=== PATIENT | male | born 1985 | race Caucasian/White ===

== ENCOUNTER 2017-01-02 17:19 | Emergency (ER) | payer SELFPAY ==
[2017-01-02 17:29] VITALS: BP 145/91
--- NOTE | 2017-01-02 17:31 | ED Physician Documentation ---
PD HPI CHEST PAIN - Stated complaint Stated Complaint: CHEST PX - Chief complaint Chief Complaint: General - History obtained from History obtained from: Patient - History of Present Illness Timing - onset: Today Timing - onset during: Sleep Timing - duration: Hours (12) Timing - details: Abrupt onset (awoke with it, noted when first got up out of bed.) Quality: Aching, Sharp Location: Right chest Radiation: No: Jaw, Neck, Back, Abdominal, Left upper extremity, Right upper extremity, Other Improved by: No: Rest Worsened by: Inspiration, Movement, Palpation Associated symptoms: No: Shortness of air, Nausea, Vomiting, Feeling faint / dizzy, General Weakness, Palpitations, Cough Similar symptoms before: Has not had sx before Recently seen: Not recently seen Review of Systems Constitutional: denies: Fever, Chills Nose: denies: Rhinorrhea / runny nose, Congestion Throat: denies: Sore throat Cardiac: denies: Palpitations, Pedal edema, Calf pain Respiratory: denies: Dyspnea, Cough, Wheezing GI: denies: Abdominal Pain, Nausea, Vomiting, Diarrhea Skin: denies: Rash, Lesions Musculoskeletal: denies: Extremity swelling Neurologic: denies: Generalized weakness, Focal weakness, Numbness, Near syncope , Altered mental status PD PAST MEDICAL HISTORY - Past Medical History Cardiovascular: None Respiratory: None Neuro: None Endocrine/Autoimmune: None GI: None - Present Medications Home Medications: Ambulatory Orders Medication Instructions Recorded Confirmed No Known Home Medications [No 01/02/17 01/02/17 Known Home Medications] - Allergies Allergies/Adverse Reactions: Allergies Allergy/AdvReac Type Severity Reaction Status Date / Time No Known Drug Allergies Allergy Verified 01/02/17 17:29 - Family History Family history: reports: Non contributory. denies: CAD, Aortic dissection PD ED PE NORMAL - Vitals Vital signs reviewed: Yes - General General: Alert and oriented X 3, Well developed/nourished - HEENT HEENT: Moist mucous membranes, Pharynx benign - Neck Neck: Supple, no meningeal sign - Cardiac Cardiac: RRR, No murmur - Respiratory Respiratory: Clear bilaterally, Other (chestwall tenderness right cartilage area. NO rash nor sores. ) - Abdomen Abdomen: Soft, Non tender - Derm Derm: Normal color, Warm and dry, No rash - Extremities Extremities: Normal ROM s pain, No edema, No calf tenderness / cord - Neuro Neuro: Alert and oriented X 3, No motor deficit, Normal speech - Psych Psych: Normal mood. No: Normal affect (somewhat anxious but pleasant) Results - Vitals Vitals: Oxygen O2 Source Room air - EKG (time done) 17:27 Rate: Rate (enter#) (68) Rhythm: NSR [place]: Normal Intervals: Normal [place] Ischemia: Normal ST segments. No: ST elevation c/w ischemia, ST depression - Rads (name of study) chest Radiology: Prelim report reviewed (no acute process) PD MEDICAL DECISION MAKING - ED course Complexity details: considered differential, d/w patient Departure - Departure Disposition: Home, Self Care Clinical Impression: Costochondral chest pain Condition: Stable Record reviewed to determine appropriate education?: Yes Instructions: ED Chest Pain Costochondritis Follow-Up: Sander Emery MD [Primary Care Provider] - Comments: This seems like some irritation/inflammation of the cartilage of the chest/ xyphoid area. I would suggest some Ibuprofen 400-600 mg three times daily for 4- 5 days, adding Tylenol every 6 hours if needed for pain. Your EKG and chest xray look okay and your exam suggests that it is the cartilage/xyphoid area of the sternum (breastbone) is what is hurting. This is typically an inflammation. Can be from injury, irritation such as cough, or tension in the chest muscles such as anxiety. This typically will improve with some anti-inflammatories and time. Recheck if not improved over the next 3-5 days, sooner if other symptoms develop. Discharge Date/Time: 01/02/17 18:53
--- NOTE | 2017-01-02 18:57 | XRAY Preliminary Report ---
Exam: XR Chest 2 View PA/LAT IMPRESSION: Normal 2-view chest radiography. [facility] SITE ID: [id number]
--- NOTE | 2017-01-02 19:00 | XRAY Report ---
EXAM: CHEST RADIOGRAPHY EXAM DATE: 01/02/2017 06:27 PM. CLINICAL HISTORY: Sternal area pain today. COMPARISON: None. TECHNIQUE: 2 views. FINDINGS: Lungs/Pleura: No focal opacities evident. No pleural effusion. No pneumothorax. Normal volumes. Mediastinum: Heart and mediastinal contours are unremarkable. Other: None. IMPRESSION: Normal 2-view chest radiography. [facility] Referring Provider Line: [phone] SITE ID: [id number]
== END 2017-01-02 18:53 | disposition home or self-care (01) ==
LOC: ED 17:19
DX: M94.0 Chondrocostal junction syndrome [Tietze] (principal)
CPT/HCPCS: 71020; 93005; 99283; 99284

== ENCOUNTER 2017-01-21 21:59 | Inpatient (IN) | payer MEDICAID ==
[2017-01-21] MEDS ORDERED: SODIUM CHLORIDE 0.9% 1,000 ML IV ONE (23:09)
[2017-01-21 23:25] LABS: BASOPHILS # (AUTO) 0.1 10^3/uL (0.0-0.1); BASOPHILS % (AUTO) 1.2 %; EOSINOPHILS # (AUTO) 0.2 10^3/uL (0.0-0.7); EOSINOPHILS % (AUTO) 2.5 %; HCT - HEMATOCRIT 44.2 % (42.0-52.0); HGB - HEMOGLOBIN 15.7 g/dL (14.0-18.0); LYMPHOCYTES # (AUTO) 2.2 10^3/uL (1.5-3.5); LYMPHOCYTES % (AUTO) 26.1 %; MEAN CORPUSCULAR HEMOGLOBIN 33.3 pg (27.0-31.0); MEAN CORPUSCULAR HGB CONC 35.6 g/dL (32.0-36.0); MEAN CORPUSCULAR VOLUME 93.5 fL (80.0-94.0); MEAN PLATELET VOLUME 7.4 fL (7.4-11.4); MONOCYTES # (AUTO) 0.5 10^3/uL (0.0-1.0); MONOCYTES % (AUTO) 6.3 %; NEUTROPHILS # (AUTO) 5.4 10^3/uL (1.5-6.6); NEUTROPHILS % (AUTO) 63.9 %; RED BLOOD COUNT 4.73 10^6/uL (4.70-6.10); RED CELL DISTRIBUTION WIDTH 12.6 % (12.0-15.0); UNCORRECTED WHITE BLOOD COUNT 8.5 x10^3/uL; WHITE BLOOD COUNT 8.5 x10^3/uL (4.8-10.8)
[2017-01-21 23:46] LABS: BILIRUBIN,URINE NEGATIVE (NEGATIVE)
[2017-01-22 00:04] LABS: UA w/ MICROSCOPIC CHARGE YES; UR CULTURE IF IND NOT INDICATED; WBC,URINE 0-3 /HPF (0-3)
[2017-01-22] MEDS ORDERED: SODIUM CHLORIDE 0.9% 1,000 ML IV ONE ×4 (00:16→22:33)
[2017-01-22 00:28] LABS: CALCIUM 9.6 mg/dL (8.5-10.3); CREATININE 1.2 mg/dL (0.6-1.2); POTASSIUM 3.8 mmol/L (3.5-5.0)
--- NOTE | 2017-01-22 00:50 | ED Physician Documentation ---
History of Present Illness - Stated complaint Stated Complaint: SORENESS IN ARMS - Chief complaint Chief Complaint: Ext Problem - History obtained from History obtained from: Patient - Additonal information Additional information: The patient is an otherwise healthy 31-year-old male who presents with soreness of his muscles and dark-colored urine. He has been working out aggressively in the gym for the past 3 days. His muscles became increasingly sore this morning , to the extent that he was not able to straighten his arms due to pain in his biceps. Today he noticed brown tinged urine. He denies fever, nausea or vomiting, or dysuria. He denies history of similar symptoms in the past. Review of Systems Constitutional: reports: Myalgias. denies: Fever Nose: denies: Congestion Throat: denies: Sore throat Cardiac: denies: Chest pain / pressure Respiratory: denies: Dyspnea, Cough GI: denies: Abdominal Pain, Nausea, Vomiting : reports: Other (Brown colored urine.). denies: Dysuria Skin: denies: Rash Musculoskeletal: reports: Extremity pain (Soreness of all extremities.) Neurologic: denies: Focal weakness, Numbness, Headache PD PAST MEDICAL HISTORY - Past Medical History Past Medical History: No Cardiovascular: None Respiratory: None Neuro: None Endocrine/Autoimmune: None GI: None - Past Surgical History Past Surgical History: No - Present Medications Home Medications: Ambulatory Orders Medication Instructions Recorded Confirmed No Known Home Medications [No 01/02/17 01/21/17 Known Home Medications] - Allergies Allergies/Adverse Reactions: Allergies Allergy/AdvReac Type Severity Reaction Status Date / Time No Known Drug Allergies Allergy Verified 01/02/17 17:29 - Social History Does the pt smoke?: Yes Smoking Status: Current every day smoker Does the pt drink ETOH?: Yes Does the pt have substance abuse?: No - Immunizations Immunizations are current?: Yes - POLST Patient has POLST: No PD ED PE NORMAL - Vitals Vital signs reviewed: Yes (Initially hypertensive.) - General General: Alert and oriented X 3, Well developed/nourished - HEENT HEENT: Atraumatic, Pharynx benign - Neck Neck: Supple, no meningeal sign, No adenopathy, No JVD - Cardiac Cardiac: RRR, No murmur - Respiratory Respiratory: No respiratory distress, Clear bilaterally - Abdomen Abdomen: Soft, Non tender, Other (Scaphoid abdomen.) - Back Back: No CVA TTP, No spinal TTP - Derm Derm: No rash - Extremities Extremities: No edema, Other (Tenderness to palpation of large muscle groups, such as biceps, triceps, and quadriceps.) - Neuro Neuro: Alert and oriented X 3, No motor deficit, No sensory deficit Results - Vitals Vitals: Vital Signs - 24 hr 01/21/17 22:14 Temperature 36.9 C Heart Rate 78 Respiratory 18 Rate Blood Pressure 148/93 H O2 Saturation 99 Oxygen O2 Source Room air - Labs Labs: Laboratory Tests 01/21/17 01/21/17 01/21/17 23:19 23:19 23:22 WBC 8.5 RBC 4.73 Hgb 15.7 Hct 44.2 MCV 93.5 MCH 33.3 H MCHC 35.6 RDW 12.6 Plt Count 246 MPV 7.4 Neut # 5.4 Lymph # 2.2 [place] # 0.5 Eos # 0.2 Baso # 0.1 Absolute Nucleated RBC 0.00 Nucleated RBCs 0.0 Sodium 138 Potassium 3.8 Chloride 102 Carbon Dioxide 28 Anion Gap 8.0 BUN 20 Creatinine 1.2 Estimated GFR (MDRD) 72 L Glucose 90 Calcium 9.6 Total Creatine Kinase 53167 H* Urine Color YELLOW Urine Clarity CLEAR Urine pH 6.0 Ur Specific [place] <=1.005 Urine Protein TRACE Urine Glucose (UA) NEGATIVE Urine Ketones NEGATIVE Urine Occult Blood LARGE H Urine Nitrite NEGATIVE Urine Bilirubin NEGATIVE Urine Urobilinogen 0.2 (NORMAL) Ur Leukocyte Esterase NEGATIVE Urine RBC 6-10 H Urine WBC 0-3 Ur Squamous Epith Cells NONE SEEN Urine Bacteria None Seen Ur Microscopic Review INDICATED Urine Culture Comments NOT INDICATED PD MEDICAL DECISION MAKING - ED course Complexity details: reviewed results, re-evaluated patient, considered differential, d/w patient, d/w family, d/w data virtualization consultant ED course: The patient's presentation is most consistent with rhabdomyolysis, with a creatinine kinase of 47,720. His BUN and creatinine are within the normal range at 20 and 1.2. There is trace protein in his urine. Treatment in the emergency department included administration of normal saline, 2 L IV. I discussed his condition with the hospitalist, who will admit him for further evaluation and treatment. Departure - Departure Disposition: [facility] DC/Xfer Clinical Impression: Rhabdomyolysis Qualifiers: Rhabdomyolysis type: traumatic Encounter type: initial encounter Qualified Code (s): T79.6XXA - Traumatic ischemia of muscle, initial encounter Condition: Stable
[2017-01-22] MEDS ORDERED: HYDROmorphone 1 MG/ML SYRINGE IVP PRN (01:23)
[2017-01-22] MEDS ORDERED: ACETAMINOPHEN 325 MG TABLET PO PRN (01:23)
[2017-01-22] MEDS ORDERED: PROCHLORPERAZINE 10 MG/2 ML VIAL IVP PRN (01:23)
[2017-01-22] MEDS ORDERED: SODIUM CHLORIDE FLUSH 0.9% 10 ML SYRINGE IVP PRN (01:23)
[2017-01-22] MEDS ORDERED: HYDROcod/ACETAM 5/325 MG TABLET PO PRN (01:23)
[2017-01-22] MEDS ORDERED: NICOTINE 14 MG PATCH TOP STA (01:39)
[2017-01-22] MEDS: SODIUM CHLORIDE 0.9% 6,000 ML IV SCH ×3 (01:53→22:33)
[2017-01-22] MEDS: SODIUM CHLORIDE FLUSH 0.9% 10 ML SYRINGE IVP SCH ×3 (01:54→22:34)
[2017-01-22] MEDS ORDERED: SODIUM CHLORIDE 0.9% 1,000 ML IV SCH (02:00)
--- NOTE | 2017-01-22 02:16 | HISTORY & PHYSICAL EXAMINATION ---
DATE OF ADMISSION: 01/22/2017 HISTORY OF PRESENT ILLNESS: This is a 31-year-old white male with a negative past medical history who takes no medications. The patient presented to the emergency room with muscle aches, especially of both arms and inability to straighten them since he was excessively working out with weights over the past 3 days. The patient states that he noted dark urine and because of this combination of symptoms, came to the emergency room. He was found to have a CPK of greater than 47,000 and is admitted for rhabdomyolysis. REVIEW OF SYSTEMS: As above. He states that he has not worked out in a long time and then resumed his heavy workout schedule 3 days ago with weights daily for the past 3 days and did not work up to this level. He denies fever or chills. The only other significant review of systems is that he has tattoos and he recently got a tattoo over the left shoulder area and has tenderness in that portion of his skin also. MEDICATIONS AT HOME None. ALLERGIES: NONE. SOCIAL HISTORY: He smokes 1/2 to 1 pack per of cigarettes a day. He has social alcohol intake. FAMILY HISTORY: Noncontributory. PHYSICAL EXAMINATION: GENERAL: Reveals a white male with extensive tattoos and he also has body piercings of the lips and nose. HEENT: Unremarkable except for the above. He has moist mucosa. NECK: Shows no JVD, no thyromegaly. No carotid bruits. No lymphadenopathy. CHEST: Clear. HEART: Sounds are normal. No audible murmurs. ABDOMEN: Soft with positive bowel sounds. EXTREMITIES: No clubbing, cyanosis, or edema. He has marked tenderness to light palpation of his thighs, calves, and upper arms. The right arm cannot be extended completely and is in a bent position of approximately 90 degrees. LABORATORY DATA: Sodium 138, potassium 3.8, BUN 20, creatinine 1.2. Total CPK 47 ,720. Calcium is normal at 9.6. White blood count 8.5, hemoglobin 15.7, platelet count normal, differential normal. Urinalysis showed a pH of 6, specific gravity of less than 1.05. Occult blood was large, but RBCs were 6-10 only. No imaging data was ordered. No EKG was ordered. No INR was ordered. IMPRESSION: Rhabdomyolysis with severe elevation of total CPK, on the basis of muscle overuse from weight lifting and working out. Muscle tenderness consistent with the above. Dark urine with positive occult blood in a large portion but only a few RBCs, these are all consistent with findings of rhabdomyolysis. PLAN: IV hydration at a rapid rate. He already received 2 liters of fluids in the ER over approximately 2-1/2 hours. Normal saline will be continued at 300 mL an hour for 6 liters or more, til CPK normalizes, to prevent renal failure. Follow his potassium, BUN, and creatinine, total CPK and urinalysis. Light activity is advised. No Lovenox will be given for DVT prophylaxis because of his young age and also concern for bleeding if he should get compartment syndrome from muscle swelling. JOB #: [id number] EXT JOB #:[id number] ALPHONSO
[2017-01-22 07:56] LABS: BUN - BLOOD UREA NITROGEN 12 mg/dL (6-20); CALCIUM 8.7 mg/dL (8.5-10.3); CARBON DIOXIDE - CO2 25 mmol/L (21-32); CHLORIDE 111 mmol/L (101-111); CREATININE 0.8 mg/dL (0.6-1.2); GFR - MDRD 114 (>89); GLUCOSE 88 mg/dL (70-100); POTASSIUM 3.8 mmol/L (3.5-5.0); SODIUM 141 mmol/L (135-145)
[2017-01-22] MEDS: POLYETHYLENE GLYCOL 3350 17 GM PACKET PO SCH (08:32)
[2017-01-22] MEDS: FAMOTIDINE 20 MG TABLET PO SCH (08:32)
[2017-01-22] MEDS: SODIUM CHLORIDE 0.9% 1,000 ML IV SCH ×4 (08:43→18:39)
--- NOTE | 2017-01-22 16:36 | PROVIDER PROGRESS NOTE ---
Assessment/Plan - Problem List (1) Rhabdomyolysis Qualifiers: Rhabdomyolysis type: traumatic Encounter type: initial encounter Qualified Code(s): T79.6XXA - Traumatic ischemia of muscle, initial encounter Assessment/Plan: Suspect this is secondary to over exercising [place] [address] Urine color improving Pt will remain on IV fluids Check labs in AM Anticipate home in 2-3 days - Current Meds Current Meds: Current Medications Generic Name Dose Route Start Last Admin Trade Name Freq PRN Reason Stop Dose Admin Famotidine 20 mg 01/22/17 09:00 01/22/17 08:32 Pepcid PO 20 mg DAILY JOE Administration Sodium Chloride 1,000 mls @ 300 mls/hr 01/22/17 08:00 01/22/17 14:41 Normal Saline 0.9% IV 01/22/17 21:19 300 mls/hr .Q3H20M JOE Administration Polyethylene Glycol 17 gm 01/22/17 09:00 01/22/17 08:32 Miralax PO Not Given DAILY JOE Sodium Chloride 10 ml 01/22/17 06:00 01/22/17 11:41 Normal Saline Flush 0.9% IVP Not Given Q8HR JOE - Lab Result Fish Bone Diagrams: 01/21/17 23:19 01/22/17 07:08 - Additional Planning Condition/Complexity: Improved My Orders: My Active Orders 01/22/17 Lunch Regular Diet [DIET] Plan Discussed with:: Patient Time Spent: 15-30 minutes Subjective - Subjective Patient Reports: Feeling Better (Less muscle aches. continues to have muscle pain and weakness.) Nursing Reports: No Complaints Objective Vital Signs: Vital Signs - 24 hr 01/22/17 01/22/17 01/22/17 01:35 01:54 07:16 Temperature 37.3 C 36.7 C Heart Rate 67 Heart Rate [ 70 72 Brachial] Respiratory 16 16 18 Rate Blood Pressure 153/93 H Blood Pressure 144/78 H 149/84 H [Right Brachial artery] O2 Saturation 97 100 98 01/22/17 01/22/17 12:05 15:39 Temperature 36.6 C Heart Rate Heart Rate [ 63 68 Brachial] Respiratory 18 16 Rate Blood Pressure Blood Pressure 137/64 H 141/73 H [Right Brachial artery] O2 Saturation 98 99 Oxygen O2 Source Room air I&O (Last 24 Hrs): Intake and Output Totals x24h 01/20/17 01/21/17 01/22/17 23:59 23:59 23:59 Intake Total 5069 Output Total 4475 Balance 594 General: Alert, Oriented x3 HEENT: PERRLA, EOMI Neck: No JVD Lymphatic: no adenopathy Neuro: Alert, CN 2-12 Grossly Intact Cardiovascular: Regular rate Respiratory: No respiratory distress Abdomen: Normal bowel sounds Extremities: No clubbing, No edema - Results Results: Laboratory Results WBC 8.5 x10^3/uL (4.8-10.8) 01/21/17 23:19 RBC 4.73 10^6/uL (4.70-6.10) 01/21/17 23:19 Hgb 15.7 g/dL (14.0-18.0) 01/21/17 23:19 Hct 44.2 % (42.0-52.0) 01/21/17 23:19 MCV 93.5 fL (80.0-94.0) 01/21/17 23:19 MCH 33.3 pg (27.0-31.0) H 01/21/17 23:19 MCHC 35.6 g/dL (32.0-36.0) 01/21/17 23:19 RDW 12.6 % (12.0-15.0) 01/21/17 23:19 Plt Count 246 10^3/uL (130-450) 01/21/17 23:19 MPV 7.4 fL (7.4-11.4) 01/21/17 23:19 Neut # 5.4 10^3/uL (1.5-6.6) 01/21/17 23:19 Lymph # 2.2 10^3/uL (1.5-3.5) 01/21/17 23:19 [place] # 0.5 10^3/uL (0.0-1.0) 01/21/17 23:19 Eos # 0.2 10^3/uL (0.0-0.7) 01/21/17 23:19 Baso # 0.1 10^3/uL (0.0-0.1) 01/21/17 23:19 Absolute Nucleated RBC 0.00 x10^3/uL 01/21/17 23:19 Nucleated RBCs 0.0 /100WBC 01/21/17 23:19 Sodium 141 mmol/L (135-145) 01/22/17 07:08 Potassium 3.8 mmol/L (3.5-5.0) 01/22/17 07:08 Chloride 111 mmol/L (101-111) 01/22/17 07:08 Carbon Dioxide 25 mmol/L (21-32) 01/22/17 07:08 Anion Gap 5.0 (6-13) L 01/22/17 07:08 BUN 12 mg/dL (6-20) 01/22/17 07:08 Creatinine 0.8 mg/dL (0.6-1.2) 01/22/17 07:08 Estimated GFR (MDRD) 114 (>89) 01/22/17 07:08 Glucose 88 mg/dL (70-100) 01/22/17 07:08 Calcium 8.7 mg/dL (8.5-10.3) 01/22/17 07:08 Ionized Calcium NO 01/22/17 07:08 Total Creatine Kinase 45392 IU/L (22-269) H* 01/22/17 07:08 Urine Color YELLOW 01/21/17 23:22 Urine Clarity CLEAR (CLEAR) 01/21/17 23:22 Urine pH 6.0 PH (5.0-7.5) 01/21/17 23:22 Ur Specific [place] <=1.005 (1.002-1.030) 01/21/17 23:22 Urine Protein TRACE mg/dL (NEGATIVE) 01/21/17 23:22 Urine Glucose (UA) NEGATIVE mg/dL (NEGATIVE) 01/21/17 23:22 Urine Ketones NEGATIVE mg/dL (NEGATIVE) 01/21/17 23:22 Urine Occult Blood LARGE (NEGATIVE) H 01/21/17 23:22 Urine Nitrite NEGATIVE (NEGATIVE) 01/21/17 23:22 Urine Bilirubin NEGATIVE (NEGATIVE) 01/21/17 23:22 Urine Urobilinogen 0.2 (NORMAL) E.U./dL (NORMAL) 01/21/17 23:22 Ur Leukocyte Esterase NEGATIVE (NEGATIVE) 01/21/17 23:22 Urine RBC 6-10 /HPF (0-5) H 01/21/17 23:22 Urine WBC 0-3 /HPF (0-3) 01/21/17 23:22 Ur Squamous Epith Cells NONE SEEN (<= Few) 01/21/17 23:22 Urine Bacteria None Seen /HPF (None Seen) 01/21/17 23:22 Ur Microscopic Review INDICATED 01/21/17 23:22 Urine Culture Comments NOT INDICATED 01/21/17 23:22
[2017-01-22] MEDS ORDERED: LORazepam 0.5 MG TABLET PO PRN (21:12)
[2017-01-22] MEDS: NICOTINE 14 MG PATCH TOP SCH (22:34)
[2017-01-23] MEDS: SODIUM CHLORIDE 0.9% 6,000 ML IV SCH ×5 (00:19→13:51)
[2017-01-23] MEDS ORDERED: SODIUM CHLORIDE 0.9% 1,000 ML IV ONE ×5 (00:19→13:51)
[2017-01-23] MEDS: SODIUM CHLORIDE FLUSH 0.9% 10 ML SYRINGE IVP SCH ×2 (05:02→13:52)
[2017-01-23 07:06] LABS: ALBUMIN/GLOBULIN RATIO 1.5 (1.0-2.2); BILIRUBIN,TOTAL 0.7 mg/dL (0.2-1.0); CALCIUM 9.2 mg/dL (8.5-10.3); CREATININE 0.7 mg/dL (0.6-1.2); MAGNESIUM 1.9 mg/dL (1.7-2.8); TOTAL PROTEIN 6.6 g/dL (6.7-8.2)
[2017-01-23] MEDS: NICOTINE 14 MG PATCH TOP SCH (07:58)
--- NOTE | 2017-01-23 08:35 | PROVIDER PROGRESS NOTE ---
Assessment/Plan - Problem List (1) Rhabdomyolysis Qualifiers: Rhabdomyolysis type: traumatic Encounter type: initial encounter Qualified Code(s): T79.6XXA - Traumatic ischemia of muscle, initial encounter Assessment/Plan: PT is feeling better today 01/23/2017. Improved ROM noted. He is getting mild cramping. Awaiting CK results for today. Electrolytes remain within normal range. Plan Continue Hydration with IV fluids Follow labs Ice or heat as needed Encouraged stretching and ROM activities. Anticipate he will discharge in the next 48 hours - Current Meds Current Meds: Current Medications Generic Name Dose Route Start Last Admin Trade Name Freq PRN Reason Stop Dose Admin Famotidine 20 mg 01/22/17 09:00 01/22/17 08:32 Pepcid PO 20 mg DAILY JOE Administration Sodium Chloride 6,000 mls @ 300 mls/hr 01/22/17 23:00 01/23/17 07:37 Normal Saline 0.9% IV 300 mls/hr .Q20H JOE Administration Nicotine 1 patch 01/22/17 22:00 01/23/17 07:58 Nicoderm TOP 1 patch DAILY JOE Administration Polyethylene Glycol 17 gm 01/22/17 09:00 01/22/17 08:32 Miralax PO Not Given DAILY JOE Sodium Chloride 10 ml 01/22/17 06:00 01/23/17 05:02 Normal Saline Flush 0.9% IVP Not Given Q8HR JOE - Lab Result Fish Bone Diagrams: 01/21/17 23:19 01/23/17 05:30 - Additional Planning Condition/Complexity: Improved My Orders: My Active Orders 01/22/17 Lunch Regular Diet [DIET] 01/24/17 05:00 CK- CREATINE KINASE [CHEM] Timed CMP [COMPREHENSIVE METABOLIC PANEL] [CHEM] DAILYLAB MAGNESIUM [CHEM] DAILYLAB 01/24/17 09:00 CK- CREATINE KINASE [CHEM] Timed 01/25/17 05:00 CMP [COMPREHENSIVE METABOLIC PANEL] [CHEM] DAILYLAB MAGNESIUM [CHEM] DAILYLAB Plan Discussed with:: Patient Time Spent: 15-30 minutes Subjective - Subjective Patient Reports: Feeling Better (Over all he feels better today. His muscles ache less. He reports sandy mild cramps in arms and legs especially with stretching.) Nursing Reports: No Complaints Objective Vital Signs: Vital Signs - 24 hr 01/22/17 01/22/1717 12:05 15:39 20:53 Temperature 36.6 C 37.5 C Heart Rate [ 63 68 58 L Brachial] Respiratory 18 16 18 Rate Blood Pressure 137/64 H 141/73 H 138/79 H [Right Brachial artery] O2 Saturation 98 99 99 01/22/17 01/23/17 01/23/17 23:48 06:18 08:28 Temperature 36.8 C 36.6 C 36.7 C Heart Rate [ 66 53 L 68 Brachial] Respiratory 16 16 16 Rate Blood Pressure 146/88 H 133/75 H 129/65 [Right Brachial artery] O2 Saturation 99 98 98 Oxygen O2 Source Room air I&O (Last 24 Hrs): Intake and Output Totals x24h 01/21/17 01/22/17 01/23/17 23:59 23:59 23:59 Intake Total 8343 2486 Output Total 5155 2150 Balance 3188 336 General: Alert, Oriented x3 HEENT: PERRLA, EOMI Neck: No JVD Neuro: Alert, CN 2-12 Grossly Intact Cardiovascular: Regular rate, No murmurs Respiratory: Chest non-tender, No respiratory distress, Breath sounds nml Abdomen: Soft Extremities: No edema Skin: No rashes, No significant lesion - Results Results: Laboratory Results WBC 8.5 x10^3/uL (4.8-10.8) 01/21/17 23:19 RBC 4.73 10^6/uL (4.70-6.10) 01/21/17 23:19 Hgb 15.7 g/dL (14.0-18.0) 01/21/17 23:19 Hct 44.2 % (42.0-52.0) 01/21/17 23:19 MCV 93.5 fL (80.0-94.0) 01/21/17 23:19 MCH 33.3 pg (27.0-31.0) H 01/21/17 23:19 MCHC 35.6 g/dL (32.0-36.0) 01/21/17 23:19 RDW 12.6 % (12.0-15.0) 01/21/17 23:19 Plt Count 246 10^3/uL (130-450) 01/21/17 23:19 MPV 7.4 fL (7.4-11.4) 01/21/17 23:19 Neut # 5.4 10^3/uL (1.5-6.6) 01/21/17 23:19 Lymph # 2.2 10^3/uL (1.5-3.5) 01/21/17 23:19 [place] # 0.5 10^3/uL (0.0-1.0) 01/21/17 23:19 Eos # 0.2 10^3/uL (0.0-0.7) 01/21/17 23:19 Baso # 0.1 10^3/uL (0.0-0.1) 01/21/17 23:19 Absolute Nucleated RBC 0.00 x10^3/uL 01/21/17 23:19 Nucleated RBCs 0.0 /100WBC 01/21/17 23:19 Sodium 140 mmol/L (135-145) 01/23/17 05:30 Potassium 4.0 mmol/L (3.5-5.0) 01/23/17 05:30 Chloride 108 mmol/L (101-111) 01/23/17 05:30 Carbon Dioxide 26 mmol/L (21-32) 01/23/17 05:30 Anion Gap 6.0 (6-13) 01/23/17 05:30 BUN 8 mg/dL (6-20) 01/23/17 05:30 Creatinine 0.7 mg/dL (0.6-1.2) 01/23/17 05:30 Estimated GFR (MDRD) 133 (>89) 01/23/17 05:30 Glucose 87 mg/dL (70-100) 01/23/17 05:30 Calcium 9.2 mg/dL (8.5-10.3) 01/23/17 05:30 Ionized Calcium NO 01/22/17 07:08 Magnesium 1.9 mg/dL (1.7-2.8) 01/23/17 05:30 Total Bilirubin 0.7 mg/dL (0.2-1.0) 01/23/17 05:30 AST 610 IU/L (10-42) H 01/23/17 05:30 ALT 195 IU/L (10-60) H 01/23/17 05:30 Alkaline Phosphatase 35 IU/L (42-121) L 01/23/17 05:30 Total Creatine Kinase 17047 IU/L (22-269) H* 01/22/17 07:08 Total Protein 6.6 g/dL (6.7-8.2) L 01/23/17 05:30 Albumin 4.0 g/dL (3.2-5.5) 01/23/17 05:30 Globulin 2.6 g/dL (2.1-4.2) 01/23/17 05:30 Albumin/Globulin Ratio 1.5 (1.0-2.2) 01/23/17 05:30 Urine Color YELLOW 01/21/17 23:22 Urine Clarity CLEAR (CLEAR) 01/21/17 23:22 Urine pH 6.0 PH (5.0-7.5) 01/21/17 23:22 Ur Specific [place] <=1.005 (1.002-1.030) 01/21/17 23:22 Urine Protein TRACE mg/dL (NEGATIVE) 01/21/17 23:22 Urine Glucose (UA) NEGATIVE mg/dL (NEGATIVE) 01/21/17 23:22 Urine Ketones NEGATIVE mg/dL (NEGATIVE) 01/21/17 23:22 Urine Occult Blood LARGE (NEGATIVE) H 01/21/17 23:22 Urine Nitrite NEGATIVE (NEGATIVE) 01/21/17 23:22 Urine Bilirubin NEGATIVE (NEGATIVE) 01/21/17 23:22 Urine Urobilinogen 0.2 (NORMAL) E.U./dL (NORMAL) 01/21/17 23:22 Ur Leukocyte Esterase NEGATIVE (NEGATIVE) 01/21/17 23:22 Urine RBC 6-10 /HPF (0-5) H 01/21/17 23:22 Urine WBC 0-3 /HPF (0-3) 01/21/17 23:22 Ur Squamous Epith Cells NONE SEEN (<= Few) 01/21/17 23:22 Urine Bacteria None Seen /HPF (None Seen) 01/21/17 23:22 Ur Microscopic Review INDICATED 01/21/17 23:22 Urine Culture Comments NOT INDICATED 01/21/17 23:22
[2017-01-23] MEDS: FAMOTIDINE 20 MG TABLET PO SCH (08:55)
[2017-01-23] MEDS: POLYETHYLENE GLYCOL 3350 17 GM PACKET PO SCH (08:55)
[2017-01-23] MEDS ORDERED: NICOTINE 14 MG PATCH TOP SCH (09:00)
[2017-01-23] MEDS: SODIUM CHLORIDE 0.9% 1,000 ML IV SCH ×2 (17:33→23:55)
[2017-01-24] MEDS: SODIUM CHLORIDE FLUSH 0.9% 10 ML SYRINGE IVP SCH ×4 (00:21→17:40)
[2017-01-24] MEDS: SODIUM CHLORIDE 0.9% 1,000 ML IV SCH ×6 (06:09→22:44)
[2017-01-24 06:17] LABS: ALBUMIN/GLOBULIN RATIO 1.5 (1.0-2.2); BILIRUBIN,TOTAL 0.6 mg/dL (0.2-1.0); CALCIUM 9.2 mg/dL (8.5-10.3); CREATININE 0.8 mg/dL (0.6-1.2); MAGNESIUM 1.9 mg/dL (1.7-2.8); TOTAL PROTEIN 6.7 g/dL (6.7-8.2)
[2017-01-24] MEDS: POLYETHYLENE GLYCOL 3350 17 GM PACKET PO SCH (09:05)
[2017-01-24] MEDS: NICOTINE 14 MG PATCH TOP SCH (09:05)
[2017-01-24] MEDS: FAMOTIDINE 20 MG TABLET PO SCH (09:05)
--- NOTE | 2017-01-24 09:22 | PROVIDER PROGRESS NOTE ---
Assessment/Plan - Problem List (1) Rhabdomyolysis Qualifiers: Rhabdomyolysis type: traumatic Encounter type: initial encounter Qualified Code(s): T79.6XXA - Traumatic ischemia of muscle, initial encounter Assessment/Plan: Ck increased to 34K today. Suspect from increased activity Over all feeling much better. He has less weakness, soreness and better ROM today Plan Continue IV fluids. Will increase back to 300 mL/hour today Recheck labs in AM - Current Meds Current Meds: Current Medications Generic Name Dose Route Start Last Admin Trade Name Freq PRN Reason Stop Dose Admin Famotidine 20 mg 01/22/17 09:00 01/24/17 09:05 Pepcid PO 20 mg DAILY JOE Administration Sodium Chloride 1,000 mls @ 300 mls/hr 01/24/17 07:21 01/24/17 08:54 Normal Saline 0.9% IV 300 mls/hr .Q3H20M JOE Administration Nicotine 1 patch 01/22/17 22:00 01/24/17 09:05 Nicoderm TOP 1 patch DAILY JOE Administration Polyethylene Glycol 17 gm 01/22/17 09:00 01/24/17 09:05 Miralax PO 17 gm DAILY JOE Administration Sodium Chloride 10 ml 01/22/17 06:00 01/24/17 06:09 Normal Saline Flush 0.9% IVP 10 ml Q8HR JOE Administration - Lab Result Fish Bone Diagrams: 01/21/17 23:19 01/24/17 05:24 - EKG Results EKG Interpreted Independently: Yes - Additional Planning Condition/Complexity: Stable My Orders: My Active Orders 01/24/17 07:21 Sodium Chloride 0.9% [Normal Saline 0.9%] 1,000 ml IV 300 mls/hr 01/25/17 05:00 CMP [COMPREHENSIVE METABOLIC PANEL] [CHEM] DAILYLAB MAGNESIUM [CHEM] DAILYLAB Plan Discussed with:: Patient Time Spent: Less than 15 minutes Subjective - Subjective Patient Reports: Feeling Better (Reports better ROM, less pain. No new complaints) Nursing Reports: No Complaints Objective Vital Signs: Vital Signs - 24 hr 01/23/17 01/23/17 01/24/17 11:15 15:31 00:00 Temperature 36.5 C 36.4 C L Heart Rate [ 61 63 Brachial] Respiratory 16 16 16 Rate Blood Pressure 141/88 H 150/78 H [Right Brachial artery] O2 Saturation 99 99 01/24/17 07:25 Temperature 36.6 C Heart Rate [ 61 Brachial] Respiratory 14 Rate Blood Pressure 133/71 H [Right Brachial artery] O2 Saturation 98 Oxygen O2 Source Room air I&O (Last 24 Hrs): Intake and Output Totals x24h 01/22/17 01/23/17 01/24/17 23:59 23:59 23:59 Intake Total 8343 3645 2443 Output Total 7920 4181 1300 Balance 3188 2570 1143 General: Alert, Oriented x3, No acute distress HEENT: PERRLA, EOMI Neck: No JVD Neuro: Alert, CN 2-12 Grossly Intact Cardiovascular: Regular rate, No murmurs Respiratory: No respiratory distress, Breath sounds nml Extremities: No edema Skin: No rashes, No significant lesion - Results Results: Laboratory Results WBC 8.5 x10^3/uL (4.8-10.8) 01/21/17 23:19 RBC 4.73 10^6/uL (4.70-6.10) 01/21/17 23:19 Hgb 15.7 g/dL (14.0-18.0) 01/21/17 23:19 Hct 44.2 % (42.0-52.0) 01/21/17 23:19 MCV 93.5 fL (80.0-94.0) 01/21/17 23:19 MCH 33.3 pg (27.0-31.0) H 01/21/17 23:19 MCHC 35.6 g/dL (32.0-36.0) 01/21/17 23:19 RDW 12.6 % (12.0-15.0) 01/21/17 23:19 Plt Count 246 10^3/uL (130-450) 01/21/17 23:19 MPV 7.4 fL (7.4-11.4) 01/21/17 23:19 Neut # 5.4 10^3/uL (1.5-6.6) 01/21/17 23:19 Lymph # 2.2 10^3/uL (1.5-3.5) 01/21/17 23:19 [place] # 0.5 10^3/uL (0.0-1.0) 01/21/17 23:19 Eos # 0.2 10^3/uL (0.0-0.7) 01/21/17 23:19 Baso # 0.1 10^3/uL (0.0-0.1) 01/21/17 23:19 Absolute Nucleated RBC 0.00 x10^3/uL 01/21/17 23:19 Nucleated RBCs 0.0 /100WBC 01/21/17 23:19 Sodium 139 mmol/L (135-145) 01/24/17 05:24 Potassium 4.0 mmol/L (3.5-5.0) 01/24/17 05:24 Chloride 106 mmol/L (101-111) 01/24/17 05:24 Carbon Dioxide 27 mmol/L (21-32) 01/24/17 05:24 Anion Gap 6.0 (6-13) 01/24/17 05:24 BUN 9 mg/dL (6-20) 01/24/17 05:24 Creatinine 0.8 mg/dL (0.6-1.2) 01/24/17 05:24 Estimated GFR (MDRD) 114 (>89) 01/24/17 05:24 Glucose 95 mg/dL (70-100) 01/24/17 05:24 Calcium 9.2 mg/dL (8.5-10.3) 01/24/17 05:24 Ionized Calcium NO 01/22/17 07:08 Magnesium 1.9 mg/dL (1.7-2.8) 01/24/17 05:24 Total Bilirubin 0.6 mg/dL (0.2-1.0) 01/24/17 05:24 AST 807 IU/L (10-42) H 01/24/17 05:24 ALT 268 IU/L (10-60) H 01/24/17 05:24 Alkaline Phosphatase 33 IU/L (42-121) L 01/24/17 05:24 Total Creatine Kinase 07325 IU/L (22-269) H* 01/24/17 05:24 Total Protein 6.7 g/dL (6.7-8.2) 01/24/17 05:24 Albumin 4.0 g/dL (3.2-5.5) 01/24/17 05:24 Globulin 2.7 g/dL (2.1-4.2) 01/24/17 05:24 Albumin/Globulin Ratio 1.5 (1.0-2.2) 01/24/17 05:24 Urine Color YELLOW 01/21/17 23:22 Urine Clarity CLEAR (CLEAR) 01/21/17 23:22 Urine pH 6.0 PH (5.0-7.5) 01/21/17 23:22 Ur Specific Longs <=1.005 (1.002-1.030) 01/21/17 23:22 Urine Protein TRACE mg/dL (NEGATIVE) 01/21/17 23:22 Urine Glucose (UA) NEGATIVE mg/dL (NEGATIVE) 01/21/17 23:22 Urine Ketones NEGATIVE mg/dL (NEGATIVE) 01/21/17 23:22 Urine Occult Blood LARGE (NEGATIVE) H 01/21/17 23:22 Urine Nitrite NEGATIVE (NEGATIVE) 01/21/17 23:22 Urine Bilirubin NEGATIVE (NEGATIVE) 01/21/17 23:22 Urine Urobilinogen 0.2 (NORMAL) E.U./dL (NORMAL) 01/21/17 23:22 Ur Leukocyte Esterase NEGATIVE (NEGATIVE) 01/21/17 23:22 Urine RBC 6-10 /HPF (0-5) H 01/21/17 23:22 Urine WBC 0-3 /HPF (0-3) 01/21/17 23:22 Ur Squamous Epith Cells NONE SEEN (<= Few) 01/21/17 23:22 Urine Bacteria None Seen /HPF (None Seen) 01/21/17 23:22 Ur Microscopic Review INDICATED 01/21/17 23:22 Urine Culture Comments NOT INDICATED 01/21/17 23:22
[2017-01-25] MEDS: SODIUM CHLORIDE 0.9% 1,000 ML IV SCH ×8 (00:18→22:21)
[2017-01-25] MEDS: SODIUM CHLORIDE FLUSH 0.9% 10 ML SYRINGE IVP SCH ×3 (05:10→22:21)
[2017-01-25 06:53] LABS: CREATININE 0.7 mg/dL (0.6-1.2); POTASSIUM 4.1 mmol/L (3.5-5.0)
[2017-01-25 06:54] LABS: ALBUMIN/GLOBULIN RATIO 1.4 (1.0-2.2); BILIRUBIN,TOTAL 0.7 mg/dL (0.2-1.0); MAGNESIUM 1.8 mg/dL (1.7-2.8); TOTAL PROTEIN 6.6 g/dL (6.7-8.2)
[2017-01-25] MEDS ORDERED: MAGNESIUM HYDROXIDE 2,400 MG/30 ML UDC PO ONE (08:10)
--- NOTE | 2017-01-25 08:45 | PROVIDER PROGRESS NOTE ---
Assessment/Plan - Problem List (1) Rhabdomyolysis Qualifiers: Rhabdomyolysis type: traumatic Encounter type: initial encounter Qualified Code(s): T79.6XXA - Traumatic ischemia of muscle, initial encounter Assessment/Plan: Ck improved PT feeling much better today but still has weakness. Renal function remains stable LFT improved Plan Continue IV fluids Will watch for trend of CK improving. Anticipate discharge in AM - Current Meds Current Meds: Current Medications Generic Name Dose Route Start Last Admin Trade Name Freq PRN Reason Stop Dose Admin Famotidine 20 mg 01/22/17 09:00 01/24/17 09:05 Pepcid PO 20 mg DAILY JOE Administration Nicotine 1 patch 01/22/17 22:00 01/24/17 09:05 Nicoderm TOP 1 patch DAILY JOE Administration Polyethylene Glycol 17 gm 01/22/17 09:00 01/24/17 09:05 Miralax PO 17 gm DAILY JOE Administration Sodium Chloride 10 ml 01/22/17 01:23 01/24/17 18:21 Normal Saline Flush 0.9% IVP 10 ml PRN PRN Administration NEEDED PER PROVIDER ORDERS Sodium Chloride 10 ml 01/22/17 06:00 01/25/17 05:10 Normal Saline Flush 0.9% IVP Not Given Q8HR JOE - Lab Result Lab results reviewed: Yes Fish Bone Diagrams: 01/21/17 23:19 01/25/17 05:53 - Additional Planning Condition/Complexity: Improved My Orders: My Active Orders 01/25/17 08:39 Sodium Chloride 0.9% [Normal Saline 0.9%] 1,000 ml IV 200 mls/hr 01/25/17 09:00 Docusate Sodium 250Mg Capsule [Colace 250Mg Capsule] 250 - 500 mg PO DAILY Senna [Senokot] 8.6 - 17.2 mg PO DAILY 01/26/17 05:00 CMP [COMPREHENSIVE METABOLIC PANEL] [CHEM] DAILYLAB 01/26/17 09:00 CK- CREATINE KINASE [CHEM] DAILY 01/27/17 05:00 CMP [COMPREHENSIVE METABOLIC PANEL] [CHEM] DAILYLAB 01/27/17 09:00 CK- CREATINE KINASE [CHEM] DAILY 01/28/17 05:00 CMP [COMPREHENSIVE METABOLIC PANEL] [CHEM] DAILYLAB 01/28/17 09:00 CK- CREATINE KINASE [CHEM] DAILY Plan Discussed with:: Patient Time Spent: Less than 15 minutes Subjective - Subjective Patient Reports: Feeling Better (Feeling better. Has less pain in muscles. ROM improving.), Constipation (Only small amount of BM yesterday. Feels bloated ) Nursing Reports: Constipation (Implimented bowel care protocol) Objective Vital Signs: Vital Signs - 24 hr 01/24/17 01/24/17 01/25/17 15:31 18:29 00:06 Temperature 36.9 C 36.7 C Heart Rate [ 70 67 68 Brachial] Respiratory 16 16 Rate Blood Pressure 144/70 H 140/78 H 145/78 H [Right Brachial artery] O2 Saturation 97 97 99 01/25/17 08:27 Temperature 36.5 C Heart Rate [ 54 L Brachial] Respiratory 20 Rate Blood Pressure 130/74 [Right Brachial artery] O2 Saturation 97 Oxygen O2 Source Room air I&O (Last 24 Hrs): Intake and Output Totals x24h 01/23/17 01/24/17 01/25/17 23:59 23:59 23:59 Intake Total 8354 0614 3439 Output Total 0761 6476 2035 Balance 2570 81 -326 General: Alert, Oriented x3 HEENT: PERRLA, EOMI Neck: No JVD Neuro: Alert, CN 2-12 Grossly Intact, Oriented Times 3 Cardiovascular: Regular rate, Normal S1, No murmurs Respiratory: No respiratory distress Extremities: No edema Skin: No significant lesion - Results Results: Laboratory Results WBC 8.5 x10^3/uL (4.8-10.8) 01/21/17 23:19 RBC 4.73 10^6/uL (4.70-6.10) 01/21/17 23:19 Hgb 15.7 g/dL (14.0-18.0) 01/21/17 23:19 Hct 44.2 % (42.0-52.0) 01/21/17 23:19 MCV 93.5 fL (80.0-94.0) 01/21/17 23:19 MCH 33.3 pg (27.0-31.0) H 01/21/17 23:19 MCHC 35.6 g/dL (32.0-36.0) 01/21/17 23:19 RDW 12.6 % (12.0-15.0) 01/21/17 23:19 Plt Count 246 10^3/uL (130-450) 01/21/17 23:19 MPV 7.4 fL (7.4-11.4) 01/21/17 23:19 Neut # 5.4 10^3/uL (1.5-6.6) 01/21/17 23:19 Lymph # 2.2 10^3/uL (1.5-3.5) 01/21/17 23:19 [place] # 0.5 10^3/uL (0.0-1.0) 01/21/17 23:19 Eos # 0.2 10^3/uL (0.0-0.7) 01/21/17 23:19 Baso # 0.1 10^3/uL (0.0-0.1) 01/21/17 23:19 Absolute Nucleated RBC 0.00 x10^3/uL 01/21/17 23:19 Nucleated RBCs 0.0 /100WBC 01/21/17 23:19 Sodium 139 mmol/L (135-145) 01/25/17 05:53 Potassium 4.1 mmol/L (3.5-5.0) 01/25/17 05:53 Chloride 107 mmol/L (101-111) 01/25/17 05:53 Carbon Dioxide 26 mmol/L (21-32) 01/25/17 05:53 Anion Gap 6.0 (6-13) 01/25/17 05:53 BUN 8 mg/dL (6-20) 01/25/17 05:53 Creatinine 0.7 mg/dL (0.6-1.2) 01/25/17 05:53 Estimated GFR (MDRD) 133 (>89) 01/25/17 05:53 Glucose 89 mg/dL (70-100) 01/25/17 05:53 Calcium 9.0 mg/dL (8.5-10.3) 01/25/17 05:53 Ionized Calcium NO 01/22/17 07:08 Magnesium 1.8 mg/dL (1.7-2.8) 01/25/17 05:53 Total Bilirubin 0.7 mg/dL (0.2-1.0) 01/25/17 05:53 AST 740 IU/L (10-42) H 01/25/17 05:53 ALT 284 IU/L (10-60) H 01/25/17 05:53 Alkaline Phosphatase 30 IU/L (42-121) L 01/25/17 05:53 Total Creatine Kinase 27913 IU/L (22-269) H* 01/25/17 05:53 Total Protein 6.6 g/dL (6.7-8.2) L 01/25/17 05:53 Albumin 3.9 g/dL (3.2-5.5) 01/25/17 05:53 Globulin 2.7 g/dL (2.1-4.2) 01/25/17 05:53 Albumin/Globulin Ratio 1.4 (1.0-2.2) 01/25/17 05:53 Urine Color YELLOW 01/21/17 23:22 Urine Clarity CLEAR (CLEAR) 01/21/17 23:22 Urine pH 6.0 PH (5.0-7.5) 01/21/17 23:22 Ur Specific [place] <=1.005 (1.002-1.030) 01/21/17 23:22 Urine Protein TRACE mg/dL (NEGATIVE) 01/21/17 23:22 Urine Glucose (UA) NEGATIVE mg/dL (NEGATIVE) 01/21/17 23:22 Urine Ketones NEGATIVE mg/dL (NEGATIVE) 01/21/17 23:22 Urine Occult Blood LARGE (NEGATIVE) H 01/21/17 23:22 Urine Nitrite NEGATIVE (NEGATIVE) 01/21/17 23:22 Urine Bilirubin NEGATIVE (NEGATIVE) 01/21/17 23:22 Urine Urobilinogen 0.2 (NORMAL) E.U./dL (NORMAL) 01/21/17 23:22 Ur Leukocyte Esterase NEGATIVE (NEGATIVE) 01/21/17 23:22 Urine RBC 6-10 /HPF (0-5) H 01/21/17 23:22 Urine WBC 0-3 /HPF (0-3) 01/21/17 23:22 Ur Squamous Epith Cells NONE SEEN (<= Few) 01/21/17 23:22 Urine Bacteria None Seen /HPF (None Seen) 01/21/17 23:22 Ur Microscopic Review INDICATED 01/21/17 23:22 Urine Culture Comments NOT INDICATED 01/21/17 23:22
[2017-01-25] MEDS: FAMOTIDINE 20 MG TABLET PO SCH (08:48)
[2017-01-25] MEDS: POLYETHYLENE GLYCOL 3350 17 GM PACKET PO SCH (08:49)
[2017-01-25] MEDS: NICOTINE 14 MG PATCH TOP SCH (08:50)
[2017-01-25] MEDS: DOCUSATE SODIUM 250 MG CAPSULE PO SCH (08:52)
[2017-01-25] MEDS: SENNA 8.6 MG TABLET PO SCH (08:54)
[2017-01-25] MEDS ORDERED: MAGNESIUM HYDROXIDE 2,400 MG/30 ML UDC ONE (17:06)
[2017-01-25] MEDS ORDERED: SODIUM CHLORIDE FLUSH 0.9% 10 ML SYRINGE IVP ONE (19:29)
[2017-01-26] MEDS: SODIUM CHLORIDE 0.9% 1,000 ML IV SCH ×5 (02:54→23:59)
[2017-01-26] MEDS: SODIUM CHLORIDE FLUSH 0.9% 10 ML SYRINGE IVP SCH ×3 (05:31→21:50)
[2017-01-26 05:57] LABS: ALBUMIN/GLOBULIN RATIO 1.5 (1.0-2.2); BILIRUBIN,TOTAL 0.7 mg/dL (0.2-1.0); CALCIUM 9.3 mg/dL (8.5-10.3); CREATININE 0.8 mg/dL (0.6-1.2); POTASSIUM 4.1 mmol/L (3.5-5.0); TOTAL PROTEIN 6.6 g/dL (6.7-8.2)
[2017-01-26] MEDS: DOCUSATE SODIUM 250 MG CAPSULE PO SCH (08:45)
[2017-01-26] MEDS: NICOTINE 14 MG PATCH TOP SCH (08:45)
[2017-01-26] MEDS: SENNA 8.6 MG TABLET PO SCH (08:45)
[2017-01-26] MEDS: FAMOTIDINE 20 MG TABLET PO SCH (08:45)
[2017-01-26] MEDS: POLYETHYLENE GLYCOL 3350 17 GM PACKET PO SCH (08:46)
--- NOTE | 2017-01-26 12:04 | Discharge Plan ---
Discharge Plan Disposition: 01 Home, Self Care Condition: Stable Diet: Regular Activity Restrictions: Additional Comments (bed rest until released by PCP) Shower Restrictions: No Weight Bearing: Full Weight Instruction Topics: Rhabdomyolysis Additional Instructions or Follow Up instructions: May see PCP in one week May have blood workup including Total Creatine kinase in one week [facility] Care: [facility] [place] No Smoking: If you smoke, Please STOP! Call for help. Follow-up with: Sander Emery MD [Primary Care Provider] -
--- NOTE | 2017-01-26 17:26 | Ultrasound Preliminary Report ---
Exam: US Abdomen Limited IMPRESSION: 1. No evidence of cholelithiasis, cholecystitis or bile duct obstruction. 2. Small gallbladder polyps. [facility] SITE ID: [id number]
--- NOTE | 2017-01-26 17:29 | Ultrasound Report ---
EXAM: ABDOMEN ULTRASOUND LIMITED, RUQ EXAM DATE: 01/26/2017 05:08 PM. CLINICAL HISTORY: Elevated liver enzyme, limited liver, gallbladder. COMPARISON: None. TECHNIQUE: Real-time scanning was performed with static images obtained. FINDINGS: Liver: Normal in size and echotexture. 16.7 cm. Main portal vein flow: Hepatopetal. Gallbladder: No gallstones. There are 2 polyps within the gallbladder measuring 2.3 and 2.2 mm. No ga llbladder wall thickening or pericholecystic fluid collections. Biliary System: CBD measures mm. No intrahepatic or extrahepatic ductal dilatation. Other: None. IMPRESSION: 1. No evidence of cholelithiasis, cholecystitis or bile duct obstruction. 2. Small gallbladder polyps. [facility] Referring Provider Line: [phone] SITE ID: [id number]
--- NOTE | 2017-01-26 18:16 | PROVIDER PROGRESS NOTE ---
Subjective - Prog Note Date Prog Note Date: 01/26/17 - Subjective Pt reports feeling: Improved Subjective: pt state he feel better, pain is very good controlled when he walks Current Medications - Current Medications Current Medications: Active Medications Acetaminophen (Tylenol) 650 mg PO Q4HR PRN PRN Reason: Pain 1 to 4 Acetaminophen/Hydrocodone Bitart (Duson 5/325) 1 tab PO Q4HR PRN PRN Reason: Pain 5 to 7 Docusate Sodium (Colace 250mg Capsule) 250 - 500 mg PO DAILY [facility] Last Admin: 01/26/17 08:45 Dose: 250 mg Famotidine (Pepcid) 20 mg PO DAILY [facility] Last Admin: 01/26/17 08:45 Dose: 20 mg Hydromorphone HCl (Dilaudid Inj) 1 mg IVP Q2HR PRN PRN Reason: Pain 8 to 10 Sodium Chloride (Normal Saline 0.9%) 1,000 mls @ 200 mls/hr IV .Q5H [facility] Last Admin: 01/26/17 14:43 Dose: 200 mls/hr Lorazepam (Ativan) 0.5 mg PO Q12H PRN PRN Reason: Anxiety Nicotine (Nicoderm) 1 patch TOP DAILY [facility] Last Admin: 01/26/17 08:45 Dose: 1 patch Polyethylene Glycol (Miralax) 17 gm PO DAILY [facility] Last Admin: 01/26/17 08:46 Dose: Not Given Prochlorperazine Edisylate (Compazine Inj) 10 mg IVP Q6HR PRN PRN Reason: Nausea / Vomiting Senna (Senokot) 8.6 - 17.2 mg PO DAILY [facility] Last Admin: 01/26/17 08:45 Dose: 8.6 mg Sodium Chloride (Normal Saline Flush 0.9%) 10 ml IVP PRN PRN PRN Reason: NEEDED PER PROVIDER ORDERS Last Admin: 01/24/17 18:21 Dose: 10 ml Sodium Chloride (Normal Saline Flush 0.9%) 10 ml IVP Q8HR [facility] Last Admin: 01/26/17 14:50 Dose: Not Given No Known Home Medications [No Known Home Medications] 01/02/17 Objective - Vital Signs/Intake & Output Vital Signs: Vital Signs x48h Temp Pulse Resp BP Pulse Ox 01/26/17 15:13 36.7 C 60 16 133/71 H 96 Intake & Output: Intake & Output 01/23/17 01/24/17 01/25/17 01/26/17 23:59 23:59 23:59 23:59 Intake Total 7445 6491 5429 3401 Output Total 4875 6410 5395 3830 Balance 2570 81 34 -429 - Objective General Appearance: positive: No acute distress, Alert. negative: Lethargic Eyes Bilateral: positive: Normal inspection, PERRL. negative: No lid inflammation, Conjunctivae nml ENT: positive: ENT inspection nml, Pharynx nml, No signs of dehydration. negative: Purulent nasal drainage, Pharyngeal erythema Neck: positive: Nml inspection, Thyroid nml, Trachea midline. negative: Thyromegaly, Lymphadenopathy (R), Lymphadenopathy (L), Stiff neck, Swelling/ bruising, Tracheal deviation Respiratory: positive: Chest non-tender, No respiratory distress, Breath sounds nml. negative: Wheezes, Rales, Rhonchi Cardiovascular: positive: Regular rate & rhythm, No murmur, No gallop. negative : Tachycardia, Bradycardia, Systolic murmur, Diastolic murmur Peripheral Pulses: 2+ Radial (R), 2+ Radial (L), 2+ Dorsalis pedis (R), 2+ Dorsalis pedis (L) Abdomen: positive: Non-tender, No organomegaly, Nml bowel sounds, No distention. negative: Tenderness, Guarding, Rebound, Hepatomegaly, Splenomegaly , Mass, Bruit Back: positive: Nml inspection. negative: CVA tenderness (R), CVA tenderness (L ) Skin: positive: Color nml, No rash, Warm, Dry. negative: Cyanosis, Diaphoresis , Pallor, Skin rash Extremities: positive: Non-tender, Full ROM, Nml appearance. negative: No pedal edema, Pedal edema, Calf tenderness, Rossy's sign/cords Neurologic/Psychiatric: positive: Oriented x3, CN's nml (2-12), Motor nml, Sensation nml, Mood/affect nml. negative: Sensory loss, Facial droop, Slurred/ abnml speech, Depressed mood/affect - Lab Results Fish Bones: 01/21/17 23:19 01/26/17 05:18 Other Labs: Lab Results x24hrs 01/26/17 01/26/17 Range/Units 09:11 05:18 Sodium 140 (135-145) mmol/L Potassium 4.1 (3.5-5.0) mmol/L Chloride 106 (101-111) mmol/L Carbon Dioxide 27 (21-32) mmol/L Anion Gap 7.0 (6-13) BUN 12 (6-20) mg/dL Creatinine 0.8 (0.6-1.2) mg/dL Estimated GFR (MDRD) 114 (>89) Glucose 90 (70-100) mg/dL Calcium 9.3 (8.5-10.3) mg/dL Total Bilirubin 0.7 (0.2-1.0) mg/dL AST 607 H (10-42) IU/L ALT 286 H (10-60) IU/L Alkaline Phosphatase 37 L (42-121) IU/L Total Creatine Kinase 37392 H* (22-269) IU/L Total Protein 6.6 L (6.7-8.2) g/dL Albumin 4.0 (3.2-5.5) g/dL Globulin 2.6 (2.1-4.2) g/dL Albumin/Globulin Ratio 1.5 (1.0-2.2) Assessment/Plan - Problem List (1) Rhabdomyolysis Impression: (1) Rhabdomyolysis Qualifiers: Rhabdomyolysis type: traumatic Encounter type: initial encounter Qualified Code(s): T79.6XXA - Traumatic ischemia of muscle, initial encounter Assessment/Plan: [place] [address] PT feeling much better today but still has weakness, pain when he walks Renal function remains stable LFT slight improved Plan Continue IV fluids Will watch for trend of CK improving. plan to D/C tomorrow. (2) consistent elevated liver enzyme pt denies recent travel, no family member has hepatitis, no history of hepatitis order US of abdomen, limited liver and gallbladder and its trace. (3)muscle pain pt report it much improved, pain control recommend pt bed rest now. daily CPK Qualifiers: Rhabdomyolysis type: traumatic Encounter type: initial encounter Qualified Code(s): T79.6XXA - Traumatic ischemia of muscle, initial encounter
[2017-01-27] MEDS: SODIUM CHLORIDE 0.9% 1,000 ML IV SCH ×2 (04:40→10:26)
[2017-01-27] MEDS: SODIUM CHLORIDE FLUSH 0.9% 10 ML SYRINGE IVP SCH (05:03)
[2017-01-27 06:04] LABS: BASOPHILS % (AUTO) 0.6 %; EOSINOPHILS # (AUTO) 0.2 10^3/uL (0.0-0.7); EOSINOPHILS % (AUTO) 3.3 %; HCT - HEMATOCRIT 42.4 % (42.0-52.0); HGB - HEMOGLOBIN 15.1 g/dL (14.0-18.0); MEAN CORPUSCULAR HEMOGLOBIN 33.4 pg (27.0-31.0); MEAN CORPUSCULAR HGB CONC 35.6 g/dL (32.0-36.0); MEAN PLATELET VOLUME 7.6 fL (7.4-11.4); MONOCYTES # (AUTO) 0.4 10^3/uL (0.0-1.0); MONOCYTES % (AUTO) 7.3 %; NEUTROPHILS # (AUTO) 3.1 10^3/uL (1.5-6.6); NEUTROPHILS % (AUTO) 53.8 %; NUCLEATED RED BLOOD CELLS AUTO 0.1 /100WBC; RED BLOOD COUNT 4.51 10^6/uL (4.70-6.10); RED CELL DISTRIBUTION WIDTH 12.2 % (12.0-15.0); UNCORRECTED WHITE BLOOD COUNT 5.7 x10^3/uL; WHITE BLOOD COUNT 5.7 x10^3/uL (4.8-10.8)
[2017-01-27 06:20] LABS: ALBUMIN/GLOBULIN RATIO 1.6 (1.0-2.2); BILIRUBIN,TOTAL 0.8 mg/dL (0.2-1.0); CALCIUM 9.3 mg/dL (8.5-10.3); CREATININE 0.7 mg/dL (0.6-1.2); POTASSIUM 3.8 mmol/L (3.5-5.0); TOTAL PROTEIN 6.5 g/dL (6.7-8.2)
[2017-01-27] MEDS: POLYETHYLENE GLYCOL 3350 17 GM PACKET PO SCH (07:52)
[2017-01-27] MEDS: DOCUSATE SODIUM 250 MG CAPSULE PO SCH (07:52)
[2017-01-27] MEDS: SENNA 8.6 MG TABLET PO SCH (07:53)
[2017-01-27] MEDS: FAMOTIDINE 20 MG TABLET PO SCH (08:44)
[2017-01-27] MEDS: NICOTINE 14 MG PATCH TOP SCH (08:44)
[2017-01-27 09:14] VITALS: BP 127/72
--- NOTE | 2017-01-27 11:06 | Discharge Plan ---
Discharge Plan Disposition: 01 Home, Self Care Condition: Stable Prescriptions: Nicotine [Nicotine Patch] 1 each TD DAILY PRN #10 patch.td24 PRN Reason: Nicotine Craving Diet: Regular Activity Restrictions: rest until released byPCP Shower Restrictions: No Driving Restrictions: No Weight Bearing: Full Weight Instruction Topics: Rhabdomyolysis Additional Instructions or Follow Up instructions: May have blood work with total creatine kinase on 01/29/17, and see PCP in one week Follow-Up Care: [facility] [place] [facility] [place] [facility] No Smoking: If you smoke, Please STOP! Call for help. Follow-up with: Sander Emery MD [Primary Care Provider] -
--- NOTE | 2017-01-27 11:19 | DISCHARGE SUMMARY ---
Discharge Summary Admit Date: 01/22/17 Discharge Date: 01/27/17 Discharging Provider: MOROCHO Primary Care Provider: Sander Lilly Code Status: Attempt Resuscitation Condition at Discharge: Stable Discharge Disposition: Home, Self Care Discharge Facility Name: home - DIAGNOSES Admission Diagnoses: (1) Rhabdomyolysis (2) elevated liver enzyme Discharge Diagnoses with Status of Each Condition: (1) Rhabdomyolysis [place] [address] down to today 7000, and with pattern of continuing to down. pt denies muscle pain, and other complaints. Pt is advised to have blood test on this Wednesday01/29/17 to test CMP and CK, and follow up PCP in one week (2) elevated liver enzyme stable, continue to down of AST and ALT. US of liver is unremarkable. - HPI History of Present Illness: please refer from Dr.Zina Louis' HPI on 01/22/17 - HOSPITAL COURSE Hospital Course: pt was admitted for muscle pain, and weakness, dark urine. Pt was found to have 66007 CK and elevated liver enzyme. Pt was treated with IVF NS. [place]'s [place] continuing [place] [address] to 7000. The elevated liver enzyme is continuing down. US of liver is unremarkable. Pt report no more muscle pain, has full appetite. Pt request to be discharged to home. pt is prescribed to have blood test including CK test on 01/29/17. - ALLERGIES Allergies/Adverse Reactions: Allergies Allergy/AdvReac Type Severity Reaction Status Date / Time No Known Drug Allergies Allergy Verified 01/28/17 02:03 - MEDICATIONS Home Medications: Ambulatory Orders Medication Instructions Recorded Confirmed Nicotine [Nicotine Patch] 1 each TD DAILY PRN #10 patch.td24 01/27/17 01/29/17 RX: Lorazepam 0.5 mg PO BID PRN #14 tablet 01/29/17 - PHYSICAL EXAM AT DISCHARGE General Appearance: positive: No acute distress, Alert. negative: Lethargic Eyes Bilateral: positive: Normal inspection, PERRL, EOMI, No lid inflammation, Conjunctivae nml ENT: positive: ENT inspection nml, Pharynx nml, No signs of dehydration. negative: Purulent nasal drainage, Pharyngeal erythema Neck: positive: Nml inspection, Thyroid nml, Trachea midline. negative: Thyromegaly, Lymphadenopathy (R), Lymphadenopathy (L), Stiff neck, Swelling/ bruising, Tracheal deviation Respiratory: positive: Chest non-tender, No respiratory distress, Breath sounds nml. negative: Wheezes, Rales, Rhonchi Cardiovascular: positive: Regular rate & rhythm, No murmur, No gallop. negative : Tachycardia, Bradycardia, Systolic murmur, Diastolic murmur Peripheral Pulses: positive: 2+ Abdomen: positive: Non-tender, Nml bowel sounds, No distention. negative: Tenderness, Guarding, Rebound Back: positive: Nml inspection. negative: CVA tenderness (R), CVA tenderness (L ) Skin: positive: Color nml, No rash, Warm, Dry. negative: Cyanosis, Diaphoresis , Pallor, Skin rash Extremities: positive: Non-tender, Full ROM, Nml appearance. negative: Pedal edema, Rossy's sign/cords Neurologic/Psychiatric: positive: Oriented x3, Motor nml, Sensation nml, Mood/ affect nml. negative: Sensory loss, Facial droop, Slurred/abnml speech, Depressed mood/affect - LABS Result Diagrams: 01/27/17 05:23 01/27/17 05:23 - FOLLOW UP Follow Up: pt is advise to have blood test including CK test in 01/29/17. Pt is advised to see PCP in one week. Pt is advised to have bed rest until proved by PCP.
== END 2017-01-27 12:03 | disposition home or self-care (01) | DRG 566 ==
LOC: ED 21:59 → MS2 01-22 01:23
PROVIDERS: ADMIT Internal Medicine; ATTEND Nurse Practitioner Gerontology
DX: T79.6XXA Traumatic ischemia of muscle, initial encounter (principal); X50.0XXA Overexertion from strenuous movement or load, initial encounter; Y93.B9 Activity, other involving muscle strengthening exercises; Y92.39 Other specified sports and athletic area as the place of occurrence of the external cause; F17.210 Nicotine dependence, cigarettes, uncomplicated
CPT/HCPCS: 36415; 76705; 80048; 80053; 80074; 81001; 81003; 82550; 83735; 85025; 87086; 96360; 96361; 99284; 99406

== ENCOUNTER 2017-01-28 01:50 | Emergency (ER) | payer MEDICAID ==
[2017-01-28 02:03] VITALS: BP 133/83
--- NOTE | 2017-01-28 02:36 | ED Physician Documentation ---
History of Present Illness - Stated complaint Stated Complaint: ARM NUMBNESS - Chief complaint Chief Complaint: Neuro - History obtained from History obtained from: Patient - History of Present Illness Timing: Today - Additonal information Additional information: Patient is a 31 year old male with a history of anxiety and recent admission for rhabdo who is presenting to the emergency department for parasthesias. Patient states that he was discharged earlier today and that now he feels some numbness on his arms. patient states that he can move everything and feel everything including hot/cold but it just kind feels numb. Patient states that he gets real bad anxiety and he has just been worried about it. Review of Systems Constitutional: reports: Myalgias. denies: Fever, Chills, Weight Loss Eyes: denies: Decreased vision Nose: denies: Rhinorrhea / runny nose, Congestion Throat: denies: Dental pain / toothache, Sore throat Cardiac: denies: Chest pain / pressure Respiratory: denies: Cough GI: denies: Nausea, Vomiting : denies: Unable to Void, Hematuria Musculoskeletal: reports: Extremity pain, Joint pain Neurologic: reports: Numbness. denies: Generalized weakness, Focal weakness, Difficulty speaking, Confused, Altered mental status, Head injury, LOC Psychiatric: reports: Anxiety PD PAST MEDICAL HISTORY - Past Medical History Past Medical History: Yes Cardiovascular: None Respiratory: None Neuro: None Endocrine/Autoimmune: None GI: None - Past Surgical History Past Surgical History: No - Present Medications Home Medications: Ambulatory Orders Medication Instructions Recorded Confirmed Nicotine [Nicotine Patch] 1 each TD DAILY PRN #10 patch.td24 01/27/17 - Allergies Allergies/Adverse Reactions: Allergies Allergy/AdvReac Type Severity Reaction Status Date / Time No Known Drug Allergies Allergy Verified 01/28/17 02:03 - Social History Does the pt smoke?: Yes Smoking Status: Current every day smoker Does the pt drink ETOH?: Yes Does the pt have substance abuse?: No - Immunizations Immunizations are current?: Yes - POLST Patient has POLST: No PD ED PE NORMAL - Vitals Vital signs reviewed: Yes - General General: Alert and oriented X 3, Well developed/nourished - HEENT HEENT: Atraumatic, PERRL - Neck Neck: Supple, no meningeal sign - Cardiac Cardiac: RRR, No murmur - Respiratory Respiratory: No respiratory distress, Clear bilaterally - Abdomen Abdomen: Soft, Non tender, Non distended - Derm Derm: Normal color, Warm and dry - Extremities Extremities: No deformity - Neuro Neuro: Alert and oriented X 3, No motor deficit, No sensory deficit, Normal speech PD ED PE EXPANDED - General General: Alert, Anxious Results - Vitals Vitals: Vital Signs - 24 hr 01/28/17 01:56 Temperature 36.8 C Heart Rate 64 Respiratory 18 Rate Blood Pressure 133/83 H O2 Saturation 99 Oxygen O2 Source Room air PD MEDICAL DECISION MAKING - ED course Complexity details: reviewed old records, reviewed results, re-evaluated patient , considered differential, d/w patient ED course: Patient was seen and examined at bedside. Patient was anxious but otherwise well appearing. Patient had no neurological deficits and no signs of infection. Patient's symptoms were likely secondary to anxiety. Patient required no further work up at this time and was stable for discharge and outpatient follow up. Departure - Departure Disposition: 01 Home, Self Care Clinical Impression: Arm paresthesia, right Condition: Good Instructions: ED Paraesthesias Follow-Up: Sander Emery MD [Primary Care Provider] - Within 1 week Comments: Your exam was within normal limits today. there was no sign of infection or neurological deficit. Your symptoms are at least in part likely due to your anxiety. You should not be too worried. You aches and pains will take a while to continue to improve. You should continue with your regiment planned out for you by the inpatient medical team. You should stay well hydrated. You may return to the emergency department at any time if needed for new, worsening or uncontrollable symptoms.
== END 2017-01-28 02:50 | disposition home or self-care (01) ==
LOC: ED 01:50
DX: R20.0 Anesthesia of skin (principal); M25.50 Pain in unspecified joint; F17.200 Nicotine dependence, unspecified, uncomplicated
CPT/HCPCS: 99283

== ENCOUNTER 2017-01-29 08:00 | Outpatient (CLI) | payer MEDICAID ==
[2017-01-29 17:59] LABS: ALBUMIN/GLOBULIN RATIO 1.5 (1.0-2.2); BILIRUBIN,TOTAL 0.9 mg/dL (0.2-1.0); CALCIUM 10.3 mg/dL (8.5-10.3); CREATININE 0.8 mg/dL (0.6-1.2); POTASSIUM 4.1 mmol/L (3.5-5.0); TOTAL PROTEIN 8.5 g/dL (6.7-8.2)
== END 2017-01-29 08:01 | disposition home or self-care (01) ==
LOC: LAB.R 08:00
PROVIDERS: ATTEND Family Medicine
DX: M62.82 Rhabdomyolysis (principal)
CPT/HCPCS: 80053; 82550

== ENCOUNTER 2017-01-29 14:06 | Emergency (ER) | payer MEDICAID ==
[2017-01-29 16:29] LABS: CALCIUM 10.2 mg/dL (8.5-10.3); CREATININE 0.8 mg/dL (0.6-1.2); POTASSIUM 4.1 mmol/L (3.5-5.0)
[2017-01-29] MEDS ORDERED: ACETAMINOPHEN 325 MG TABLET PO STA (16:48)
--- NOTE | 2017-01-29 16:48 | ED Physician Documentation ---
History of Present Illness - Stated complaint Stated Complaint: ARMS/BODY NUMBNESS - Chief complaint Chief Complaint: General - History obtained from History obtained from: Patient - Additonal information Additional information: The patient is a 31-year-old male who was discharged from the hospital 2 days ago after being hospitalized for rhabdomyolysis. He presents now complaining of vague decreased sensation in his upper extremities. He denies any weakness, and states that he can feel light touch and temperature sensation in his hands, but describes the decreased sensation as being like after an ice pack has been placed on the skin. He admits to being very anxious about it, and has noticed it is worse when he is breathing deeply. He reports a history of anxiety disorder, and his anxiety has been worse since he stopped smoking cigarettes after his recent hospitalization. He has been wearing a nicotine patch. He was supposed to get his BUN, creatinine, and creatinine kinase rechecked today. [facility] it [facility], and was told to come to the hospital for the blood work. Review of Systems Constitutional: denies: Fever Ears: denies: Tinnitus/ringing Nose: denies: Congestion Throat: denies: Sore throat Cardiac: denies: Chest pain / pressure Respiratory: denies: Dyspnea, Cough GI: denies: Abdominal Pain, Nausea, Vomiting : denies: Dysuria Skin: denies: Rash Musculoskeletal: reports: Extremity swelling (He reports mild soft tissue swelling of his extremities since his diagnosis with rhabdomyolysis.). denies: Back pain Neurologic: reports: Numbness (upper extremities). denies: Focal weakness, Headache Psychiatric: reports: Anxiety PD PAST MEDICAL HISTORY - Past Medical History Past Medical History: No Cardiovascular: None Respiratory: None Neuro: None Endocrine/Autoimmune: None GI: None - Past Surgical History Past Surgical History: No - Present Medications Home Medications: Ambulatory Orders Medication Instructions Recorded Confirmed Nicotine [Nicotine Patch] 1 each TD DAILY PRN #10 patch.td24 01/27/17 01/29/17 Lorazepam 0.5 mg PO BID PRN #14 tablet 01/29/17 - Allergies Allergies/Adverse Reactions: Allergies Allergy/AdvReac Type Severity Reaction Status Date / Time No Known Drug Allergies Allergy Verified 01/28/17 02:03 - Social History Does the pt smoke?: Yes Smoking Status: Current every day smoker (Stop smoking this week, and is wearing a nicotine patch.) Does the pt drink ETOH?: Yes ETOH Use: Beer Does the pt have substance abuse?: No - Immunizations Immunizations are current?: Yes - POLST Patient has POLST: No PD ED PE NORMAL - Vitals Vital signs reviewed: Yes (Initially hypertensive.) - General General: Alert and oriented X 3, Well developed/nourished - HEENT HEENT: Atraumatic, EOMI, Pharynx benign - Cardiac Cardiac: RRR, No murmur - Respiratory Respiratory: No respiratory distress, Clear bilaterally - Abdomen Abdomen: Soft, Non tender - Back Back: No CVA TTP - Derm Derm: No rash - Extremities Extremities: No tenderness to palpate, No edema, No calf tenderness / cord - Neuro Neuro: Alert and oriented X 3, No motor deficit, No sensory deficit, Normal speech - Psych Psych: Other (Somewhat anxious appearing.) Results - Vitals Vitals: Oxygen O2 Source Room air - Labs Labs: Laboratory Tests 01/29/17 15:45 Sodium 135 Potassium 4.1 Chloride 97 L Carbon Dioxide 29 Anion Gap 9.0 BUN 15 Creatinine 0.8 Estimated GFR (MDRD) 114 Glucose 92 Calcium 10.2 Total Creatine Kinase 5 H* PD MEDICAL DECISION MAKING - ED course Complexity details: reviewed old records, reviewed results, re-evaluated patient , considered differential, d/w patient ED course: I am familiar with this patient having been the one who diagnosed him with rhabdomyolysis 8 days ago. I suspect the vague paresthesia he experiences in his upper extremities is related to hyperventilation syndrome from his anxiety, with also some component of mild edema associated with muscle injury. There is no clinical evidence to suggest central nervous system neurologic deficit, or peripheral neuropathy. His creatinine kinase has come down to 5, from 7165 two days ago. His BUN and creatinine are normal. Treatment in the emergency department included administration of acetaminophen 650 mg orally. I discussed with him the expected course of illness, symptomatic treatment and outpatient follow-up, as well as potentially worrisome signs or symptoms that should prompt reevaluation in the emergency department. Departure - Departure Disposition: 01 Home, Self Care Clinical Impression: Hyperventilation syndrome, Anxiety about health Rhabdomyolysis Qualifiers: Encounter type: subsequent encounter Condition: Stable Instructions: ED Stress React, ED Hyperventilation Syndrome Follow-Up: [facility] [Provider Group] Prescriptions: Lorazepam 0.5 mg PO BID PRN #14 tablet PRN Reason: Anxiety Comments: Continue drinking plenty of fluids. You can use lorazepam as prescribed if needed for anxiety. Follow up with your primary physician within 1 week. Call to schedule appointment. Return to the emergency department if you develop increasing shortness of breath , persistent vomiting, or otherwise worsening symptoms. Discharge Date/Time: 01/29/17 17:00
[2017-01-29] MEDS ORDERED: ACETAMINOPHEN 325 MG TABLET PO ONE (16:58)
[2017-01-29 17:00] VITALS: BP 127/74
== END 2017-01-29 17:00 | disposition home or self-care (01) ==
LOC: ED 14:06
DX: M62.82 Rhabdomyolysis (principal); F45.8 Other somatoform disorders; F41.9 Anxiety disorder, unspecified; F17.210 Nicotine dependence, cigarettes, uncomplicated
CPT/HCPCS: 36415; 80048; 80053; 82550; 99283; A9270

== ENCOUNTER 2017-02-11 21:57 | Emergency (ER) | payer MEDICAID ==
[2017-02-11 22:38] LABS: BILIRUBIN,URINE NEGATIVE (NEGATIVE)
--- NOTE | 2017-02-11 22:38 | ED Physician Documentation ---
PD HPI BACK PAIN - Stated complaint Stated Complaint: FLANK PX - Chief complaint Chief Complaint: Abd Pain - History obtained from History obtained from: Patient, Family - History of Present Illness Timing - onset: Today Timing - duration: Hours (5) Timing - details: Abrupt onset Pain level max: 6 Pain level now: 4 Location: Lower, Left Quality: Pain, Sharp, Similar to prior episodes Associated symptoms: No: Fever, Weakness, Numbness, Incontinent of urine, Unable to urinate, Hematuria, Incontinent of stool Improves with: Rest Worsened by: Movement Contributing factors: No: Lifting, Twisting, Trauma, Anticoagulated, Cancer, IVDA Similar symptoms before: Diagnosis (states sometimes has low back pain, but is concerned about a kidney stone.) Recently seen: Emergency Dept (for anxiety and rhabdomyolysis) Review of Systems Constitutional: denies: Fever, Chills Nose: denies: Rhinorrhea / runny nose, Congestion Respiratory: denies: Cough GI: denies: Nausea, Vomiting, Constipation, Diarrhea, Hematemesis : denies: Dysuria, Frequency, Hesitancy, Hematuria Skin: denies: Rash Neurologic: denies: Focal weakness, Numbness PD PAST MEDICAL HISTORY - Past Medical History Cardiovascular: None Respiratory: None Neuro: None Endocrine/Autoimmune: None GI: None - Past Surgical History Past Surgical History: No - Present Medications Home Medications: Ambulatory Orders Medication Instructions Recorded Confirmed No Known Home Medications [No 02/11/17 02/11/17 Known Home Medications] - Allergies Allergies/Adverse Reactions: Allergies Allergy/AdvReac Type Severity Reaction Status Date / Time No Known Drug Allergies Allergy Verified 02/11/17 22:02 - Social History Does the pt smoke?: Yes Smoking Status: Current every day smoker (Stop smoking this week, and is wearing a nicotine patch.) Does the pt drink ETOH?: Yes Does the pt have substance abuse?: No - Immunizations Immunizations are current?: Yes - POLST Patient has POLST: No PD ED PE NORMAL - Vitals Vital signs reviewed: Yes - General General: Alert and oriented X 3, No acute distress, Well developed/nourished - HEENT HEENT: Moist mucous membranes - Neck Neck: Supple, no meningeal sign - Cardiac Cardiac: RRR, Strong equal pulses - Respiratory Respiratory: No respiratory distress, Clear bilaterally - Abdomen Abdomen: Soft, Non tender, Non distended - Back Back: No CVA TTP, No spinal TTP - Derm Derm: Warm and dry - Extremities Extremities: No tenderness to palpate, Normal ROM s pain - Neuro Neuro: Alert and oriented X 3, No motor deficit, No sensory deficit - Psych Psych: Normal mood, Normal affect Results - Vitals Vitals: Oxygen O2 Source Room air - Labs Labs: Laboratory Tests 02/11/17 02/11/17 02/11/17 22:25 22:33 22:33 WBC 7.0 RBC 4.90 Hgb 16.2 Hct 45.5 MCV 93.0 MCH 33.2 H MCHC 35.7 RDW 12.3 Plt Count 292 MPV 7.1 L Neut # 4.0 Lymph # 2.4 [place] # 0.5 Eos # 0.1 Baso # 0.0 Absolute Nucleated RBC 0.00 Nucleated RBCs 0.0 Sodium 137 Potassium 3.8 Chloride 99 L Carbon Dioxide 28 Anion Gap 10.0 BUN 14 Creatinine 0.9 Estimated GFR (MDRD) 100 Glucose 98 Calcium 9.8 Total Bilirubin 0.8 AST 28 ALT 33 Alkaline Phosphatase 45 Total Protein 8.4 H Albumin 5.4 Globulin 3.0 Albumin/Globulin Ratio 1.8 Lipase 33 Urine Color YELLOW Urine Clarity CLEAR Urine pH 7.0 Ur Specific [place] 1.010 Urine Protein NEGATIVE Urine Glucose (UA) NEGATIVE Urine Ketones NEGATIVE Urine Occult Blood NEGATIVE Urine Nitrite NEGATIVE Urine Bilirubin NEGATIVE Urine Urobilinogen 0.2 (NORMAL) Ur Leukocyte Esterase NEGATIVE Ur Microscopic Review NOT INDICATED Urine Culture Comments NOT INDICATED - Rads (name of study) CT abd/pelvis Radiology: Prelim report reviewed, EMP read contemporaneously, See rad report ( No left urinary tract stones or obstruction. 2. Punctate nonobstructing right renal stone. ) PD MEDICAL DECISION MAKING - ED course Complexity details: reviewed results, re-evaluated patient, considered differential, d/w patient ED course: Patient is a 31-year-old male who presents to the emergency department with left flank pain. He was recently admitted forRhabdomyolysis. Is concerned that he may have developed a kidney stone. No stones seen on CT scan other than a punctate nonobstructing right renal stone. Likely this is a musculoskeletal injury. We will continue supportive care and use Tylenol at home for pain. Patient counseled regarding signs and symptoms for which I believe and urgent re-evaluation would be necessary. Patient with good understanding of and agreement to plan and is comfortable going home at this time This document was made in part using voice recognition software. While efforts are made to proofread this document, sound alike and grammatical errors may occur. Departure - Departure Disposition: 01 Home, Self Care Clinical Impression: Back pain Qualifiers: Back pain location: low back pain Chronicity: acute Back pain laterality: left Sciatica presence: without sciatica Qualified Code(s): M54.5 - Low back pain Condition: Good Instructions: ED Neck Back Pain General Follow-Up: your,doctor in 1 week [Other] Comments: Return if you worsen. You can use motrin or tylenol at home for pain. Discharge Date/Time: 02/11/17 23:23
[2017-02-11 22:39] LABS: UA CHARGE (STRIP ONLY) YES; UR CULTURE IF IND NOT INDICATED
[2017-02-11 22:43] LABS: BASOPHILS % (AUTO) 0.6 %; EOSINOPHILS # (AUTO) 0.1 10^3/uL (0.0-0.7); EOSINOPHILS % (AUTO) 1.3 %; HCT - HEMATOCRIT 45.5 % (42.0-52.0); HGB - HEMOGLOBIN 16.2 g/dL (14.0-18.0); LYMPHOCYTES # (AUTO) 2.4 10^3/uL (1.5-3.5); LYMPHOCYTES % (AUTO) 34.7 %; MEAN CORPUSCULAR HEMOGLOBIN 33.2 pg (27.0-31.0); MEAN CORPUSCULAR HGB CONC 35.7 g/dL (32.0-36.0); MEAN PLATELET VOLUME 7.1 fL (7.4-11.4); MONOCYTES # (AUTO) 0.5 10^3/uL (0.0-1.0); MONOCYTES % (AUTO) 6.8 %; NEUTROPHILS % (AUTO) 56.6 %; RED CELL DISTRIBUTION WIDTH 12.3 % (12.0-15.0)
[2017-02-11 22:51] LABS: ALBUMIN/GLOBULIN RATIO 1.8 (1.0-2.2); BILIRUBIN,TOTAL 0.8 mg/dL (0.2-1.0); CALCIUM 9.8 mg/dL (8.5-10.3); CREATININE 0.9 mg/dL (0.6-1.2); POTASSIUM 3.8 mmol/L (3.5-5.0); TOTAL PROTEIN 8.4 g/dL (6.7-8.2)
--- NOTE | 2017-02-11 23:09 | CT Preliminary Report ---
Exam: CT Abdomen/Pelvis W/O IMPRESSION: 1. No left urinary tract stones or obstruction. 2. Punctate nonobstructing right renal stone. [facility] SITE ID: [id number]
--- NOTE | 2017-02-11 23:11 | CT Report ---
EXAM: CT ABDOMEN AND PELVIS (CT KUB) EXAM DATE: 02/11/2017 10:53 PM. CLINICAL HISTORY: L flank pain, poss renal stone. COMPARISONS: Ultrasound 01/26/2017. TECHNIQUE: Routine axial helical CT imaging was performed through the abdomen and pelvis without IV c ontrast. Reconstructions: Coronal and sagittal. In accordance with CT protocol optimization, one or more of the following dose reduction techniques w ere utilized for this exam: automated exposure control, adjustment of mA and/or KV based on patient s ize, or use of iterative reconstructive technique. FINDINGS: Lung Bases: Unremarkable. Right Kidney/Ureter: Punctate nonobstructing stone. No stones, hydronephrosis, or hydroureter. No per inephric fat stranding. Left Kidney/Ureter: No stones, hydronephrosis, or hydroureter. No perinephric fat stranding. Other Solid Organs: Noncontrast images of the solid organs are grossly unremarkable. Gallbladder/Bile Ducts: Unremarkable. Peritoneal Cavity: No free fluid, free air or glynn adenopathy. Bowel is grossly unremarkable. Pelvic Organs: No bladder stones or wall thickening. Noncontrast images of the visualized pelvic orga ns are unremarkable with note of small hydroceles. Vasculature: Unremarkable. Other: None. IMPRESSION: 1. No left urinary tract stones or obstruction. 2. Punctate nonobstructing right renal stone. [facility] Referring Provider Line: [phone] SITE ID: [id number]
[2017-02-11 23:18] VITALS: BP 128/83
== END 2017-02-11 23:23 | disposition home or self-care (01) ==
LOC: ED 21:57
DX: M54.5 Low back pain (principal); F17.200 Nicotine dependence, unspecified, uncomplicated
CPT/HCPCS: 36415; 74176; 80053; 81001; 81003; 83690; 85025; 87086; 99283

== ENCOUNTER 2020-04-29 21:25 | Outpatient (CLI) | payer OTHER | END 2020-04-29 21:26 | disposition home or self-care (01) | LOC: COV 21:25 | PROVIDERS: ATTEND Family Medicine | DX: R07.0 Pain in throat (principal); Z20.828 Contact with and (suspected) exposure to other viral communicable diseases ==